=== PATIENT | male | born 1955 | race Asian ===

== ENCOUNTER 2020-11-12 21:49 | Emergency (ER) | payer OTHER, MEDICARE ==
[~2020-11-12] VITALS: Ht 165.1 cm; Wt 59.0 kg
[2020-11-12 21:49] VITALS: BP_SYST 153
[2020-11-12] MEDS ORDERED: MORPHINE 4 MG/ML INJ. SYRINGE IVP ONE (22:15)
[2020-11-12] MEDS ORDERED: LR 1,000 ML IV ONE (22:15)
[2020-11-12] MEDS ORDERED: ONDANSETRON HCL 4 MG/2 ML VIAL IVP ONE (22:15)
[2020-11-12 22:25] LABS: HEMATOCRIT 47.7 % (36-54); HEMOGLOBIN 15.5 g/dL (14.0-18.0); MEAN CORPUSCULAR HEMOGLOBIN 31 pg (27-31); MEAN CORPUSCULAR HGB CONC 33 % (32-36); MEAN CORPUSCULAR VOLUME 96 fL (79.0-98.0); RED BLOOD CELL COUNT(AUTO) 4.98 MIL/uL (4.2-6.2); WHITE BLOOD COUNT (AUTO) 10.9 K/uL (4.8-10.8)
[2020-11-12 22:26] LABS: BASOPHILS % (AUTO) 0.3 % (0.0-2.0); EOSINOPHILS % (AUTO) 0.8 % (0.0-4.0); LYMPHOCYTES # (AUTO) 1.9 K/uL (1.0-5.5); LYMPHOCYTES % (AUTO) 17.3 % (20.5-51.5); MONOCYTES # (AUTO) 0.7 K/uL (0.0-1.0); MONOCYTES % (AUTO) 6.5 % (1.7-9.3); NEUTROPHILS # (AUTO) 8.2 K/uL (1.8-7.7); NEUTROPHILS % (AUTO) 75.1 % (40.0-70.0); PLATELET COUNT (AUTO) 181 K/uL (130-430); RED CELL DISTRIBUTION WIDTH 13.9 % (9.0-15.0)
[2020-11-12 22:27] LABS: EOSINOPHILS # (AUTO) 0.1 K/uL (0.0-0.4)
[2020-11-12 22:34] LABS: ANION GAP 7 (5-15); CALCIUM 9.9 mg/dL (8.4-11.0); CHLORIDE 105 mmol/L (98-107); CREATININE 1.29 mg/dL (0.55-1.30); GLUCOSE 117 mg/dL (70-99); POTASSIUM 3.6 mmol/L (3.5-5.1); SODIUM SERUM 143 mmol/L (136-145); UREA NITROGEN, BLOOD 15 mg/dL (8-21)
[2020-11-12 22:42] LABS: ALANINE AMINOTRANSFERASE 33 U/L (12-78); ASPARTATE AMINOTRANSFERASE 26 U/L (10-37); BILIRUBIN,DIRECT 0.1 mg/dL (0.0-0.3); LIPASE 287 U/L (73-393); TOTAL BILIRUBIN 0.7 mg/dL (0.0-1.0)
[2020-11-12 22:43] LABS: GFR AFRICAN AMERICAN 71 mL/min (>90)
[2020-11-12 22:43] LABS: BILIRUBIN,URINE NEGATIVE (NEGATIVE); BLOOD, URINE 1+ (NEGATIVE); CLARITY/URINE CLEAR (CLEAR); COLOR,URINE YELLOW (YELLOW); GLUCOSE,URINE NEGATIVE (NEGATIVE); KETONES,URINE NEGATIVE (NEGATIVE); LEUKOCYTE ESTERASE ,URINE NEGATIVE (NEGATIVE); NITRITE, URINE NEGATIVE (NEGATIVE); PROTEIN URINE 1+ (NEGATIVE); UROBILINOGEN,URINE 0.2 (0.2-1.0)
[2020-11-12 22:53] LABS: BACTERIA,URINE FEW /HPF (None Seen); WBC,URINE 0-3 /HPF (0-3)
[2020-11-13] MEDS ORDERED: cefTRIAXone 1 GM IVPB PREMIX 50 ML IV ONE ×2 (00:56→01:15)
[2020-11-13] MEDS ORDERED: metroNIDAZOLE 500 mg/NS 100 ML IV ONE ×2 (00:57→01:15)
[2020-11-13] MEDS ORDERED: MORPHINE 4 MG/ML INJ. SYRINGE IVP ONE (01:00)
[2020-11-13] MEDS ORDERED: ONDANSETRON HCL 4 MG/2 ML VIAL IVP ONE (01:00)
[2020-11-13] MEDS ORDERED: LEVO750T45 PO (02:13)
[2020-11-13] MEDS ORDERED: HYDR-3919 PO (02:13)
[2020-11-13] MEDS ORDERED: PHE25 PO (02:13)
[2020-11-13] MEDS ORDERED: METR500T PO (02:13)
[2020-11-13 02:14] VITALS: BP_SYST 121
== END 2020-11-13 02:25 | disposition home or self-care (01) ==
LOC: SED 21:49
DX: R10.33 Periumbilical pain (principal)
CPT/HCPCS: 36415; 71045; 72191; 74175; 76376; 80048; 80076; 81000; 83690; 84484; 85025; 85610; 93005; 96361; 96365; 96367; 96375; 96376; 99285; J0696; J2270 ×2; J2405 ×2; J3490; J7030; Q9967